=== PATIENT | female | born 1950 | race Caucasian/White ===

== ENCOUNTER → 2023-12-04 14:42 | Outpatient (REF) | payer MEDICARE, OTHER, SELFPAY | LOC: MRI 3T 14:42 | PROVIDERS: ATTENDING PHYSICIAN Orthopaedic Surgery; FAMILY PHYSICIAN Family Medicine | DX: M25.561 Pain in right knee (principal) | CPT/HCPCS: 73721 ==

== ENCOUNTER → 2023-12-13 13:50 | Outpatient (REF) | payer MEDICARE, OTHER, SELFPAY ==
[2023-12-13 15:20] LABS: % Basophils 0.7 % (0-2); % Eosinophils 1.4 % (0-6); % Immature Granulocytes 0.3 % (0-0.5); % Lymphocytes 36.4 % (20.5-51.1); % Monocytes 7.3 % (1.7-9.3); % Neutrophils 53.9 % (42.2-75.2); Absolute Basophils 0.1 10^3/uL (0-0.2); Absolute Eosinophils 0.1 10^3/uL (0-0.7); Absolute Lymphocytes 3.6 10^3/uL (1.2-3.4); Absolute Monocytes 0.7 10^3/uL (0.1-0.6); Absolute Neutrophils 5.3 10^3/uL (1.4-6.5); Hematocrit 43.9 % (37.0-47.0); Hemoglobin 14.8 g/dL (12.0-16.0); Mean Corp Hgb Conc. 33.7 g/dL (33.0-37.0); Mean Corpuscular Hgb 30.8 pg (27.0-31.0); Mean Corpuscular Volume 91.5 fL (81.0-99.0); Nucleated Red Blood Cells % 0 %; Platelet Count 260 10^3/uL (130-400); Red Cell Dist. Width 12.6 % (11.5-14.5); White Blood Cell Count 9.8 10^3/uL (4.8-10.8)
[2023-12-13 16:10] LABS: Blood Urea Nitrogen 19 mg/dl (7-17); Calcium 10.3 mg/dl (8.4-10.2); Carbon Dioxide 23 mmol/L (22-30); Chloride 96 mmol/L (98-107); Glucose 159 mg/dl (70-99); Sodium 135 mmol/L (135-145); eGFR > 60.00
== END ==
LOC: REG 13:50
PROVIDERS: ATTENDING PHYSICIAN Orthopaedic Surgery; FAMILY PHYSICIAN Family Medicine
DX: Z01.818 Encounter for other preprocedural examination (principal)
CPT/HCPCS: 36415; 80048; 85025

== ENCOUNTER → 2024-02-29 12:55 | Outpatient (REF) | payer MEDICARE, OTHER, SELFPAY | LOC: WDC 12:55 | PROVIDERS: ATTENDING PHYSICIAN Obstetrics & Gynecology Gynecology; FAMILY PHYSICIAN Family Medicine | DX: Z12.31 Encounter for screening mammogram for malignant neoplasm of breast (principal); M85.89 Other specified disorders of bone density and structure, multiple sites | CPT/HCPCS: 77063; 77067; 77080 ==

== ENCOUNTER → 2024-06-03 07:32 | Outpatient (REF) | payer MEDICARE, OTHER, SELFPAY | LOC: MRI 3T 07:32 | PROVIDERS: ATTENDING PHYSICIAN Internal Medicine Transplant Hepatology; FAMILY PHYSICIAN Family Medicine | DX: K76.6 Portal hypertension (principal) | CPT/HCPCS: 74183; A9575 ==

== ENCOUNTER 2024-09-15 09:06 | Emergency (ER) | payer MEDICARE, OTHER, SELFPAY ==
[2024-09-15 09:16] VITALS: BP 130/65
[2024-09-15 09:40] LABS: % Basophils 0.4 % (0-2); % Eosinophils 0.5 % (0-6); % Immature Granulocytes 0.2 % (0-0.5); % Lymphocytes 12.7 % (20.5-51.1); % Monocytes 5.5 % (1.7-9.3); % Neutrophils 80.7 % (42.2-75.2); Absolute Eosinophils 0.1 10^3/uL (0-0.7); Absolute Lymphocytes 1.4 10^3/uL (1.2-3.4); Absolute Monocytes 0.6 10^3/uL (0.1-0.6); Absolute Neutrophils 8.7 10^3/uL (1.4-6.5); Hematocrit 39.5 % (37.0-47.0); Hemoglobin 13.9 g/dL (12.0-16.0); Mean Corp Hgb Conc. 35.2 g/dL (33.0-37.0); Mean Corpuscular Hgb 31.3 pg (27.0-31.0); Mean Platelet Volume 9.4 fL (7.4-10.4); Nucleated Red Blood Cells % 0 %; Platelet Count 206 10^3/uL (130-400); Red Blood Cell Count 4.44 10^6/uL (4.20-5.40); Red Cell Dist. Width 12.1 % (11.5-14.5); White Blood Cell Count 10.8 10^3/uL (4.8-10.8)
[2024-09-15 10:00] LABS: NT-proBNP 147 pg/ml
[2024-09-15 10:09] LABS: ALT (SGPT) 22 U/L (0-35); AST (SGOT) 22 U/L (14-36); Albumin 4.7 g/dl (3.5-5.0); Alkaline Phosphatase 57 U/L (38-126); Blood Urea Nitrogen 18 mg/dl (7-17); Calcium 9.2 mg/dl (8.4-10.2); Carbon Dioxide 24 mmol/L (22-30); Chloride 97 mmol/L (98-107); Glucose 164 mg/dl (70-99); Potassium 4.4 mmol/L (3.5-5.1); Sodium 135 mmol/L (135-145); Total Bilirubin 0.4 mg/dl (0.2-1.3); Total Protein 6.9 g/dl (6.3-8.2); eGFR > 60.00
--- NOTE | 2024-09-15 12:13 | ED.GENMED ---
History of Present Illness
General
Chief Complaint: DVT/Possible Blood Clot
Source: patient
Exam Limitations: none
Time Seen by Provider: 09/15/24 10:09
Nursing documentation reviewed up to this point in time: agreed with
History of Present Illness
History of Present Illness:
74-year-old female past medical history of hypertension hyperlipidemia, diabetes presenting to the emergency department today with concerns of left-sided calf discomfort for about a week denies specific injury. Also noticing [place] swelling to
legs bilaterally. Also had a cough starting this morning. Denies any specific chest pain no significant shortness of breath. No nausea or vomiting. No history of blood clots no recent trauma surgery immobilization.
Past History
Past History
ED Past Medical History: Arrthythmia (afib), HTN, Hypercholesterolemia, IDDM and Other (Diverticulosis, diverticulitis)
ED Past Surgical History: Other (surgery for skin cancer)
Social History
Tobacco: Non-smoker
Personal:
Living: with family
Employment: Employed
Review of Systems
Review of Systems
Allergies reviewed?: Yes
All Other Systems: ROS reviewed and negative except as documented in HPI and ROS
Phy Exam
Physical Exam
Physical Exam:
GENERAL: Alert , in no apparent distress
EYE: pupils equal and reactive
NECK: Supple, no significant adenopathy.
ENT: o/p clr, mmm.
CARDIAC: Regular rate and rhythm .
LUNGS: Clear breath sounds bilaterally, no acute respiratory distress, no wheezes/rales/rhonchi
ABDOMEN: Soft, without focal tenderness, no r/g, no cvat
NEUROLOGICAL: Alert and oriented, no focal neuro deficits
SKIN: Warm and dry, skin intact.
MUSCULOSKELETAL: Trace pitting edema to the ankles bilaterally. Nothing extending more proximal. Good distal pulses well perfused.
PSYCH: Normal and appropriate interaction.
Course
Orders/Labs/Results
Orders:
Orders
09/15/24 09:20
US Periph Venous LOWER Ext LT Urgent
Comment:
Reason For Exam: pain, swelling
09/15/24 09:33
CMP [Comprehensive Metabolic Panel] Urgent
Complete Blood Count/With Diff Urgent
NT-proBNP Urgent
09/15/24 10:49
EKG [Electrocardiogram (*1)] Urgent
Reason for Study: Fatigue / Weakness
EKG- Treatment ONCE
Chest [CR Chest - 2 Views ] Urgent
Comment:
Reason For Exam: cough, right lower rhonchi
Abnormal Lab Results
09/15/24
09:33
MCH 31.3 H pg
(27.0-31.0)
Absolute Neuts (auto) 8.7 H 10^3/uL
(1.4-6.5)
Neutrophils % 80.7 H %
(42.2-75.2)
Lymphocytes % 12.7 L %
(20.5-51.1)
Chloride 97 L mmol/L
(98-107)
BUN 18 H mg/dl
(7-17)
Glucose 164 H mg/dl
(70-99)
09/15/24 09:33
09/15/24 09:33
Vital Signs
Initial and Last Documented VS:
Initial Vital Signs
Temp Pulse Resp BP Pulse Ox
98.2 F 91 16 130/65 99
09/15/24 09:16 09/15/24 09:16 09/15/24 09:16 09/15/24 09:16 09/15/24 09:16
Last Documented Vital Signs
Temp Pulse Resp BP Pulse Ox
98.2 F 91 16 130/65 99
09/15/24 09:16 09/15/24 09:16 09/15/24 09:16 09/15/24 09:16 09/15/24 09:16
MDM/Problems Addressed
MDM/Problems Addressed:
75-year-old female presenting to the emergency department today with concerns of left comfort for about a week. Also had a cough and some mild swelling to the bilateral ankles. On arrival here vital signs are normal patient no distress lungs are
clear patient does have a hacking cough. Otherwise ultrasound performed no evidence of DVT chest x-ray without acute abnormalities EKG normal. No signs of emergent pathology causing swelling able for close outpatient follow-up return precautions
given.
*Critical Care Note
Total Time (30-74mins, 75-104mins- exclusive of procedures): Not Applicable
ED Attending Note
-
Portions of this chart may have been created with voice recognition software.� Occasional wrong word or��sound alike� substitutions may have occurred due to the inherent limitations of voice recognition software.
Discharge Plan
Departure
Patient Disposition: Home (Routine Discharge)
Date of Disposition: 09/15/24
Time of Disposition: 12:19
Patient with high blood pressure during this ER visit?: No
Condition: Good
Covid-19: Not Applicable
Discharge Problem:
Calf pain, Edema, peripheral, Cough
Instructions: Swelling
Prescriptions:
New
Robitussin Cough and Cold CF 2.5-5-50 mg/5 mL liquid
15 ml PO Q4H PRN (Reason: Cough) Qty: 118 0RF
No Action
insulin glargine [Lantus U-100 Insulin] 1,000 UNITS/10 ML solution
40 units SC HS
Patient Comments:
Pt states taking one month ago. On hold by Dr Britton.
sumatriptan succinate 50 MG tablet
25 mg PO PRN PRN (Reason: headaches)
pantoprazole 40 MG tablet,delayed release (DR/EC)
20 mg PO DAILY
lisinopril 10 MG tablet
10 mg PO DAILY
glimepiride 4 MG tablet
4 mg PO DAILY
rosuvastatin 5 MG tablet
5 mg PO WEEKLY
Patient Comments:
takes only on Fridays
metformin 1,000 MG tablet extended release 24hr
1,000 mg PO BID
aspirin [Aspir-Low] 81 MG tablet,delayed release (DR/EC)
1 tab PO DAILY
diltiazem HCl 120 MG capsule,extended release 24hr
120 mg PO DAILY
rivaroxaban [Xarelto] 20 MG tablet
20 mg PO DAILY
cholecalciferol (vitamin D3) [Vitamin D3] 50 MCG capsule
1 tab PO DAILY
Referrals:
Bear Britton MD [Family Provider] -
Activity Restrictions/Additional Instructions:
You came to the emergency department today with concerns of leg swelling. Here your workup was reassuring. He also had a cough. Please take the prescribed medications and follow-up closely with the primary care doctor for reassessment. Return
for any worsening, new or concerning symptoms.
Interventions
Interventions:
*Risk Screen - Suicide Last Done: 09/15/24 09:16
*General Assessment Last Done: 09/15/24 09:16
*Neglect/Abuse Screening Last Done: 09/15/24 09:16
*ED COVID-19 Vaccine History Last Done: 09/15/24 09:16
Discharge Date and Time
Print Language: MALAWIAN
[2024-09-15 13:16] VITALS: BP 122/61
== END 2024-09-15 13:17 | disposition home or self-care (01) ==
LOC: EMR 09:06
PROVIDERS: EMERGENCY PHYSICIAN Student in an Organized Health Care Education/Training Program; FAMILY PHYSICIAN Family Medicine
DX: M79.662 Pain in left lower leg (principal); R60.0 Localized edema; R05.9 Cough, unspecified; I10 Essential (primary) hypertension; E78.00 Pure hypercholesterolemia, unspecified; E11.9 Type 2 diabetes mellitus without complications; I48.91 Unspecified atrial fibrillation; Z85.828 Personal history of other malignant neoplasm of skin
CPT/HCPCS: 99284; 71046; 80053; 83880; 85025; 93005; 93971

== ENCOUNTER → 2024-11-20 09:04 | Outpatient (REF) | payer MEDICARE, OTHER, SELFPAY | LOC: HWRCS 09:04 | PROVIDERS: ATTENDING PHYSICIAN Internal Medicine Cardiovascular Disease; FAMILY PHYSICIAN Family Medicine | DX: I48.0 Paroxysmal atrial fibrillation (principal) | CPT/HCPCS: 93306 ==

== ENCOUNTER → 2025-02-10 09:44 | Outpatient (REF) | payer MEDICARE, OTHER, SELFPAY | LOC: HWRAD 09:44 | PROVIDERS: ATTENDING PHYSICIAN Student in an Organized Health Care Education/Training Program | DX: I88.9 Nonspecific lymphadenitis, unspecified (principal); R09.89 Other specified symptoms and signs involving the circulatory and respiratory systems | CPT/HCPCS: 93882 ==

== ENCOUNTER → 2025-02-20 07:09 | Outpatient (REF) | payer MEDICARE, OTHER, SELFPAY | LOC: RAD 07:09 | PROVIDERS: ATTENDING PHYSICIAN Student in an Organized Health Care Education/Training Program | DX: R22.1 Localized swelling, mass and lump, neck (principal) | CPT/HCPCS: 70491; Q9967 ==

== ENCOUNTER → 2025-03-03 11:30 | Outpatient (REF) | payer MEDICARE, OTHER, SELFPAY | LOC: WDC 11:30 | PROVIDERS: ATTENDING PHYSICIAN Obstetrics & Gynecology Gynecology; FAMILY PHYSICIAN Family Medicine | DX: Z12.31 Encounter for screening mammogram for malignant neoplasm of breast (principal) | CPT/HCPCS: 77063; 77067 ==

== ENCOUNTER → 2025-06-01 12:08 | Outpatient (REF) | payer MEDICARE, OTHER, SELFPAY | LOC: MRI 3T 12:08 | PROVIDERS: ATTENDING PHYSICIAN Internal Medicine Transplant Hepatology; FAMILY PHYSICIAN Family Medicine | DX: K76.6 Portal hypertension (principal); K86.89 Other specified diseases of pancreas | CPT/HCPCS: 74183; A9585 ==